=== PATIENT | male | born 1985 | race Two or more races ===

== ENCOUNTER 2016-12-03 15:38 | Emergency (ER) | payer MEDICAID ==
[~2016-12-03] VITALS: Ht 167.6 cm; Wt 83.9 kg
[2016-12-03 15:39] VITALS: BP 147/95
--- NOTE | 2016-12-03 15:55 | Emergency Room Report ---
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 He thinks he was out for 1-2 min. Asymptomatic now. Denies precipitating chest pain, SOB, headache. Had "tumor" removed from [facility] 2 months ago. has shunt placed. Not sure when last time it was checked. No other medical problems. EMS states HR 150 on scene. "Hot" in attic but they didnt check patient's temp. 98F in ED. HR down to 110. Allergies: Coded Allergies: No Known Allergies (Unverified , 12/03/16) Patient History Past Medical History: none Past Surgical History: other - Guilherme surgery Pertinent Family History: none Social History: Denies: smoking, alcohol use, drug use Immunizations: UTD Reviewed Nursing Documentation: PMH: Agreed, PSxH: Agreed Nursing Documentation-PMH Past Medical History: No History, Except For Review of Systems All Other Systems: negative except mentioned in HPI Physical Exam Vital Signs Date Time Temp Pulse Resp B/P (MAP) Pulse Ox O2 Delivery O2 Flow Rate FiO2 12/03/16 15:33 98.4 112 18 147/95 99 Sp02 EP Interpretation: reviewed, normal General Appearance: normal inspection, well appearing, no apparent distress, alert, GCS 15, non-toxic Head: normocephalic, other - Post-op scar in top of head Eyes: bilateral eye PERRL, bilateral eye EOMI ENT: normal ENT inspection, hearing grossly normal, normal voice Neck: normal inspection, full range of motion, supple, no bony tend Respiratory: normal inspection, lungs clear, normal breath sounds, no respiratory distress, no retraction, no wheezing Cardiovascular #1: regular rate, rhythm, no edema Gastrointestinal: normal inspection, normal bowel sounds, non tender, soft, no guarding, no hernia Genitourinary: no CVA tenderness Musculoskeletal: normal inspection, back normal, normal range of motion, Yanna' s Sign negative Neurologic: normal inspection, alert, oriented x3, responsive, laser engraver III-XII nml as tested, motor strength/tone normal, speech normal Psychiatric: normal inspection, judgement/insight normal, mood/affect normal Skin: normal inspection, normal color, no rash Lymphatic: normal inspection Medical Decision Making Diagnostic Impression: Primary Impression: Syncope Qualified Codes: R55 - Syncope and collapse Additional Impression: Rhabdomyolysis Qualified Codes: T79.6XXA - Traumatic ischemia of muscle, initial encounter ER Course VS initially tachycardic, improved after hydration ECG sinus tach. Troponin 0. CT head and shunt series so in-place and functioning TRUCK CATERER shunt Mild CK, rhabdo without [place] or HyperK - hydrated in ED Tolerating PO Ambulating in ED DC home Advised NeuroSurg followup to check TRUCK CATERER shunt EKG Diagnostic Results Rate: tachycardiac Rhythm: NSR ST Segments: no acute changes ASA given to the pt in ED: No Rhythm Strip Diag. Results EP Interpretation: yes Rate: 110 Rhythm: NSR, no PVC's, no ectopy Last Vital Signs Date Time Temp Pulse Resp B/P (MAP) Pulse Ox O2 Delivery O2 Flow Rate FiO2 12/03/16 15:39 98.4 18 147/95 99 12/03/16 15:33 112 Status: improved Disposition: HOME, SELF-CARE DANIELLA RIVERA M.D. Dec 03, 2016 15:55
[2016-12-03 16:31] LABS: TROPONIN I < 0.30 ng/mL (<=0.30)
--- NOTE | 2016-12-03 16:31 | Diagnostic Imaging Report ---
Indication: Syncope Technique: Contiguous 5 mm thick transaxial imaging of the head obtained in a Siemens Sensation [address] scanner. Soft tissue and bone windows generated. Total Dose length Product (DLP): [address] Dose Index Volume (CTDIvol): 70.38, 0.15 mGy Comparison: none Findings: There is a right posterior parietal ventricle peritoneal shunt that appears to be in good position. The shunt traverses the right lateral ventricle. There is slight dilatation of the right lateral ventricle. This is associated with focal white matter parenchymal loss or atrophy (encephalomalacia) and low attenuation. A large right-sided craniotomy noted. There is no acute hemorrhage or evidence of mass effect or edema. Impression: No definite mass effect, acute intracranial hemorrhage or edema. Right posterior parietal ventriculostomy noted in good position. 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 The CT scanner at [facility] is accredited by the [employer] and the scans are performed using dose optimization techniques as appropriate to a performed exam including Automatic Exposure control.
--- NOTE | 2016-12-03 16:32 | Diagnostic Imaging Report ---
Indication: Evaluation of the patient. Part of a shunt series Comparison: None Findings: Two views of the neck performed. A right-sided SPECTROGRAPHER shunt noted. The shunt appears intact. Impression: Neck portion of the shunt is normal.
--- NOTE | 2016-12-03 16:33 | Diagnostic Imaging Report ---
Indication: MARKETING DIRECTOR shunt evaluation Comparison: None A single view chest radiograph was obtained. Findings: MARKETING DIRECTOR shunt projected over the right side of the chest. The catheter appears intact. Cardiomediastinal appearance is within normal limits for age. Pulmonary vascularity is appropriate. The diaphragmatic contour is smooth and costophrenic angles are sharp. No pleural effusions are identified. The bones are unremarkable. Impression: No acute findings. Visualized portions of the MARKETING DIRECTOR shunt appears intact.
[2016-12-03 16:34] LABS: ALANINE AMINOTRANSFERASE 40 U/L (3-41); ALBUMIN/GLOBULIN RATIO 1.7 (1.0-2.7); ANION GAP 18 (5-15); ASPARTATE AMINO TRANSFERASE 28 U/L (5-40); CALCIUM 9.5 mg/dL (8.6-10.2); CARBON DIOXIDE 21 mEQ/L (20-30); CHLORIDE 103 mEQ/L (98-107); CREATININE 1.2 mg/dL (0.7-1.2); GLOMERULAR FILTRATION RATE > 60 mL/min (>60); HEMOLYSIS 7; POTASSIUM 3.8 mEQ/L (3.4-4.9); SODIUM 142 mEQ/L (135-145); TOTAL PROTEIN 7.4 g/dL (6.6-8.7)
--- NOTE | 2016-12-03 16:34 | Diagnostic Imaging Report ---
Indication: RAILROAD ENGINEER shunt evaluation Comparison: None Single view of the abdomen obtained The RAILROAD ENGINEER shunt is curled within the right lower quadrant of abdomen. The catheter appears intact. Impression: Intact RAILROAD ENGINEER shunt
[2016-12-03 16:36] LABS: BASOPHILS % (AUTO) 0.8 % (0.0-2.0); EOSINOPHILS % (AUTO) 0.5 % (0.0-3.0); LYMPHOCYTES % (AUTO) 32.4 % (20.0-45.0); MEAN CORPUSCULAR HEMOGLOBIN 31.7 PG (27.0-31.0); MEAN CORPUSCULAR HGB CONC 38.2 G/DL (32.0-36.0); MEAN CORPUSCULAR VOLUME 83 FL (80-99); MEAN PLATELET VOLUME 8.7 FL (6.5-10.1); MONOCYTES % (AUTO) 4.3 % (1.0-10.0); NEUTROPHILS % (AUTO) 62.1 % (45.0-75.0); PLATELET COUNT 195 K/UL (150-450); RED BLOOD COUNT 4.36 M/UL (4.70-6.10); RED CELL DISTRIBUTION WIDTH 11.9 % (11.6-14.8); WHITE BLOOD COUNT 5.8 K/UL (4.8-10.8)
[2016-12-03 16:44] LABS: CKMB 3.2 ng/mL (< 6.7)
[2016-12-03 17:38] VITALS: BP 127/79
[2016-12-03 17:39] VITALS: BP 127/79
--- NOTE | 2016-12-05 12:42 | Cardiology Report ---
APPROVED REPORT EKG Measurement Heart [id number] NE 154P50 [id number] Sinus tachycardia Cannot rule out Anterior infarct, age undetermined Abnormal ECG
== END 2016-12-03 17:41 | disposition home or self-care (01) ==
LOC: EDBD 15:38 → EMR 15:55
DX: R55 Syncope and collapse (principal); M62.82 Rhabdomyolysis; Z98.2 Presence of cerebrospinal fluid drainage device
CPT/HCPCS: 36415; 70360; 70450; 71010; 74000; 80053; 82550; 82553; 84484; 85025; 93005; 99284